=== PATIENT | female | born 1935 | race Caucasian/White ===

== ENCOUNTER → 2017-01-14 | Outpatient (CLI) | payer MEDICARE, BC | LOC: RAD 12:14 | DX: M54.5 Low back pain (principal); M54.6 Pain in thoracic spine; M41.9 Scoliosis, unspecified; M47.816 Spondylosis without myelopathy or radiculopathy, lumbar region; M51.34 Other intervertebral disc degeneration, thoracic region | CPT/HCPCS: 72072; 72100 ==

== ENCOUNTER → 2021-04-17 | Outpatient (CLI) | payer MEDICARE, BC ==
[~2021-04-17] MED LIST: ASPIRIN EC325 MG PO; BIOTIN2500 MCG PO; CO Q-10100 MG PO; COSOPT OPTH SOL10 ML EYEBOTH; COZAAR 25MG TAB25 MG PO; HYDROXYZINE HCL25 MG PO; LUMIGAN 0.01%2.5 ML EYEBOTH; LUTEIN20 MG PO; MILK OF MAGNESI30 ML PO; NORCO 7.5-3251 EACH PO; PRESERVISION A1 EAC1 PO; STOOL SOFTENER100 MG PO; TRAMADOL HCL50 MG PO; VITAMIN B-121000 MCG PO; VITAMIN C500 MG PO; VITAMIN D350 MC3 PO; VOLTAREN ARTHRI20 GM TP; ZETIA 10 MG TAB10 MG PO
== END ==
LOC: MRI 03-21 10:30
DX: M51.37 Other intervertebral disc degeneration, lumbosacral region (principal); M48.07 Spinal stenosis, lumbosacral region; M47.817 Spondylosis without myelopathy or radiculopathy, lumbosacral region
CPT/HCPCS: 72148

== ENCOUNTER → 2021-06-28 | Outpatient (CLI) | payer MEDICARE, BC | LOC: KOH-I 11:05 | DX: N18.31 Chronic kidney disease, stage 3a (principal); N28.1 Cyst of kidney, acquired | CPT/HCPCS: 76775 ==

== ENCOUNTER → 2021-09-27 | Outpatient (CLI) | payer MEDICARE, BC | LOC: LAB 08:52 | PROVIDERS: Internal Medicine Nephrology | DX: N18.31 Chronic kidney disease, stage 3a (principal) | CPT/HCPCS: 36415; 80053; 82570; 84156 ==